=== PATIENT | female | born 1955 | race Hispanic/Latino ===

== ENCOUNTER 2017-12-19 15:29 | Emergency (ER) | payer OTHER ==
--- NOTE | 2017-12-19 16:22 | RAD REPORT ---
EXAM DESCRIPTION: RAD - Chest Pa And Lat (2 Views) - 12/19/2017 4:07 pm CLINICAL HISTORY: COUGH Chest pain. COMPARISON: CHEST SINGLE VIEW dated 07/19/2010 FINDINGS: The lungs are clear. The heart is mildly prominent. No displaced fractures. IMPRESSION: Mild cardiomegaly suspected.
[2017-12-19 17:25] LABS: Absolute Lymphocytes (CBC) 1.7 K/uL (0.7-4.9); Absolute Monocytes 0.4 K/uL (0.1-1.3); Absolute Neutrophil 2.3 K/uL (1.8-8.0); Basophils % 0.4 % (0-1.3); Eosinophils % 3.3 % (0-4.4); Hematocrit 39.2 % (36.0-45.0); Lymphocytes % 36.7 % (15.3-44.8); MCV 93.4 fL (80-100); MPV 8.1 fL (7.6-11.3); Monocytes % 9.1 % (3.3-12.3)
--- NOTE | 2017-12-19 17:31 | EKG ---
Test Date: 2017-12-19 Test Time: 15:53:40 Measurer: MYAH MEASUREMENT RESULTS: Intervals: Rate: 80 [place]: 154 QRSD: 146 QT: 408 QTc: 470 Ivor: P: 59 [place]: 154 QRS: 18 T: 184 INTERPRETIVE STATEMENTS: Normal sinus rhythm Left bundle branch block Abnormal ECG Compared to ECG 11/21/2016 22:28:14 Sinus tachycardia no longer present Left-axis deviation no longer present Electronically Signed On 12-19-17 17:30:04 CDT by Cipriano Weaver
[2017-12-19 17:44] LABS: BUN Blood Urea Nitrogen 14 mg/dL (7-18); Bicarbonate 29 mmol/L (21-32); Glucose Level 88 mg/dL (74-106); NT PRO-BNP 63 pg/mL (<125); Potassium 3.9 mmol/L (3.5-5.1); Sodium Level 139 mmol/L (136-145)
--- NOTE | 2017-12-19 17:53 | ER ---
Nurse's Notes [facility] Name: Ruth Silva Age: 62 yrs Sex: Female : 1955 Arrival Date: 12/19/2017 Time: 15:32 Bed 19 Private MD: out of town, doctor Diagnosis: Cough Presentation: 12/19 15:40 Initial Sepsis Screen: Does the patient meet any 2 criteria? No. Patient's initial sg sepsis screen is negative. Does the patient have a suspected source of infection? No. Patient's initial sepsis screen is negative. 15:41 Presenting complaint: Patient states: productive cough, chest pain intermittent with sv cough, back pain x 1 month. c/o chills. Transition of care: patient was not received from another setting of care. Onset of symptoms was November 18, 2017. Risk Assessment: Do you want to hurt yourself or someone else? Patient reports no desire to harm self or others. Care prior to arrival: None. 15:41 Method Of Arrival: Ambulatory sv 15:41 Acuity: MINAL 3 sv Historical: - Allergies: 15:44 No Known Allergies; sv - Home Meds: 15:44 unk HTN med [Active]; sv - PMHx: 15:44 Hypertension; sv - PSHx: 15:44 eye; sv - Immunization history:: Adult Immunizations up to date. - Social history:: Smoking status: Patient/guardian denies using tobacco. - Ebola Screening: : No symptoms or risks identified at this time. - Family history:: not pertinent. - Hospitalizations: : No recent hospitalization is reported. Screenin:20 Abuse screen: Denies threats or abuse. Denies injuries from another. Nutritional sg screening: No deficits noted. Tuberculosis screening: No symptoms or risk factors identified. Never had TB. Fall Risk None identified. Assessment: 15:40 General: Appears in no apparent distress. comfortable, well groomed, well developed, sg well nourished, Behavior is calm, cooperative, appropriate for age. Pain: Complains of pain in back Quality of pain is described as aching. Neuro: Level of Consciousness is awake, alert, obeys commands, Oriented to person, place, time, situation, Speech is normal, Facial symmetry appears normal. 15:40 Respiratory: Airway is patent Respiratory effort is even, unlabored, Respiratory sg pattern is regular, symmetrical, Breath sounds are clear. GI: No signs and/or symptoms were reported involving the gastrointestinal system. : No signs and/or symptoms were reported regarding the genitourinary system. EENT: No signs and/or symptoms were reported regarding the EENT system. Derm: Skin is pink, warm \T\ dry. Musculoskeletal: No signs and/or symptoms reported regarding the musculoskeletal system. 15:40 Cardiovascular: Heart tones S1 S2 present Capillary refill is brisk in bilateral sg fingers Patient's skin is warm and dry. Chest pain is denied. Vital Signs: 15:44 BP 181 / 81; Pulse 85; Resp 18; Temp 97.8; Pulse Ox 98% ; Weight 63.5 kg; Height 4 ft. sv 9 in. (144.78 cm); Pain 6/10; 15:44 Body Mass Index 30.30 (63.50 kg, 144.78 cm) sv ED Course: 15:32 Patient arrived in ED. mr 15:33 out of town, doctor is Private Physician. mr 15:40 Patient has correct armband on for positive identification. Bed in low position. Call sg light in reach. Side rails up X2. Pulse ox on. NIBP on. 15:43 Triage completed. sv 15:45 Arm band placed on right wrist. sv 15:45 Patient placed in waiting room, Patient notified of wait time. sv 15:57 EKG completed in triage. Results shown to MD. sv 16:04 Patient moved to radiology via wheelchair. kc2 16:05 Chest Pa And Lat (2 Views) XRAY In Process Unspecified. EDMS 16:05 X-ray completed. Patient tolerated procedure well. kc2 16:53 David Lomas MD is Attending Physician. rn 17:05 Villa Chapman, LYUBOV is Primary Nurse. sg 17:20 Initial lab(s) drawn, by wv, sent to lab. Inserted saline lock: 22 gauge in left mh5 antecubital area, using aseptic technique. Blood collected. 18:20 No provider procedures requiring assistance completed. IV discontinued, intact, sg bleeding controlled, No redness/swelling at site. Pressure dressing applied. Administered Medications: No medications were administered Outcome: 17:53 Discharge ordered by MD. rn 18:20 Discharged to home ambulatory, with family. sg 18:20 Condition: good 18:20 Discharge instructions given to patient, Instructed on discharge instructions, follow up and referral plans. safety practices, Demonstrated understanding of instructions, follow-up care. 18:28 Patient left the ED. iw Signatures: Dispatcher [employer] Funmilayo Castillo RN RN sv Gay, Steven, RN RN sg Rivera, Maria mr Jyotsna Cronin RN RN iw Nieto, Roman, MD MD rn Carr, Kelsie kc Jovana Houser [facility] Corrections: (The following items were deleted from the chart) 15:45 15:41 Presenting complaint: Patient states: cough, chest pain intermittent with cough, sv back pain x 1 month. c/o chills sv 18:45 15:40 General: Appears in no apparent distress. comfortable, well groomed, well sg developed, well nourished, Behavior is calm, cooperative, appropriate for age, sg
--- NOTE | 2017-12-19 17:54 | EDPHYS ---
Physician Documentation [facility] Name: Ruth Silva Age: 62 yrs Sex: Female : 1955 Arrival Date: 12/19/2017 Time: 15:32 Bed 19 Private MD: out of town, doctor ED Physician David Lomas HPI: 12/19 17:49 This 62 yrs old Female presents to ER via Ambulatory with complaints of Cough, rn Back Pain. 17:49 The patient or guardian reports cough. Onset: The symptoms/episode began/occurred 1 rn month(s) ago. Severity of symptoms: At their worst the symptoms were mild, in the emergency department the symptoms are unchanged. Modifying factors: The symptoms are alleviated by nothing, the symptoms are aggravated by nothing. The patient has experienced a previous episode. Reports 1 month of cough, no fever, hurts chest and back when coughs, no fever, taking 2 unknown BP meds, thinks one might be lisinopril, no sob, reports coughs more at night. NO abd pain. . Historical: - Allergies: 15:44 No Known Allergies; sv - Home Meds: 15:44 unk HTN med [Active]; sv - PMHx: 15:44 Hypertension; sv - PSHx: 15:44 eye; sv - Immunization history:: Adult Immunizations up to date. - Social history:: Smoking status: Patient/guardian denies using tobacco. - Ebola Screening: : No symptoms or risks identified at this time. - Family history:: not pertinent. - Hospitalizations: : No recent hospitalization is reported. ROS: 17:49 Constitutional: Negative for fever, chills, and weight loss, Eyes: Negative for injury, rn pain, redness, and discharge, Neck: Negative for injury, pain, and swelling, Cardiovascular: Negative for palpitations, and edema, Respiratory: Negative for wheezing Abdomen/GI: Negative for abdominal pain, nausea, vomiting, diarrhea, and constipation, MS/Extremity: Negative for injury and deformity, Skin: Negative for injury, rash, and discoloration, Neuro: Negative for headache, weakness, numbness, tingling, and seizure. Exam: 17:49 Constitutional: This is a well developed, well nourished patient who is awake, alert, rn and in no acute distress. Head/Face: Normocephalic, atraumatic. Eyes: Pupils equal round and reactive to light, extra-ocular motions intact. Lids and lashes normal. Conjunctiva and sclera are non-icteric and not injected. Cornea within normal limits. Periorbital areas with no swelling, redness, or edema. Neck: Trachea midline, no thyromegaly or masses palpated, and no cervical lymphadenopathy. Supple, full range of motion without nuchal rigidity, or vertebral point tenderness. No Meningismus. Cardiovascular: Regular rate and rhythm with a normal S1 and S2. No gallops, murmurs, or rubs. Normal PMI, no JVD. No pulse deficits. Respiratory: Lungs have equal breath sounds bilaterally, clear to auscultation and percussion. No rales, rhonchi or wheezes noted. No increased work of breathing, no retractions or nasal flaring. Abdomen/GI: Soft, non-tender, with normal bowel sounds. No distension or tympany. No guarding or rebound. No evidence of tenderness throughout. MS/ Extremity: Pulses equal, no cyanosis. Neurovascular intact. Full, normal range of motion. Equal circumference. Neuro: Awake and alert, GCS 15, oriented to person, place, time, and situation. Cranial nerves II-XII grossly intact. Motor strength 5/5 in all extremities. Sensory grossly intact. Vital Signs: 15:44 BP 181 / 81; Pulse 85; Resp 18; Temp 97.8; Pulse Ox 98% ; Weight 63.5 kg; Height 4 ft. sv 9 in. (144.78 cm); Pain 6/10; 15:44 Body Mass Index 30.30 (63.50 kg, 144.78 cm) sv MDM: 16:53 Patient medically screened. rn 17:49 Differential Diagnosis: Allergic Rhinitis Viral Syndrome Pneumonia Other acid reflux, rn CHF, PATIENCE antihypertensive. Data reviewed: vital signs, nurses notes, lab test result(s), EKG, radiologic studies, plain films, and as a result, I will discharge patient. Counseling: I had a detailed discussion with the patient and/or guardian regarding: the historical points, exam findings, and any diagnostic results supporting the discharge/admit diagnosis, lab results, radiology results, the need for outpatient follow up, to return to the emergency department if symptoms worsen or persist or if there are any questions or concerns that arise at home. Response to treatment: the patient's symptoms have mildly improved after treatment, and as a result, I will discharge patient. Special discussion: I discussed with the patient/guardian in detail that at this point there is no indication for admission to the hospital. It is understood, however, that if the symptoms persist or worsen the patient needs to return immediately for re-evaluation. Based on the history and exam findings, there is no indication for further emergent testing or inpatient evaluation. I discussed with the patient/guardian the need to see the primary care provider for further evaluation of the symptoms. ED course: Unsure of meds, but might be PATIENCE medication side effect, acid reflux, allergic rhinitis, given length of symptoms, normal renal function, normal bnp, no pneumonia on CXR.. 12/19 17:04 Order name: CBC with Diff; Complete Time: 17:32 rn 12/19 17:04 Order name: Basic Metabolic Panel; Complete Time: 17:47 rn 12/19 15:46 Order name: Chest Pa And Lat (2 Views) XRAY; Complete Time: 16:53 12/19 15:46 Order name: EKG; Complete Time: 15:46 12/19 17:04 Order name: BNP; Complete Time: 17:47 rn 12/19 17:04 Order name: Troponin (emerg Dept Use Only); Complete Time: 17:47 rn 12/19 15:46 Order name: EKG - Nurse/Tech; Complete Time: 16:20 12/19 17:04 Order name: IV Start rn Administered Medications: No medications were administered Disposition: 12/19/17 17:53 Discharged to Home. Impression: Cough. - Condition is Stable. - Discharge Instructions: Cough, Adult. - Medication Reconciliation Form, Thank You Letter, Antibiotic Education, Prescription Opioid Use form. - Follow up: Private Physician; When: As needed; Reason: Recheck today's complaints, Re-evaluation by your physician. - Problem is an ongoing problem. - Symptoms are unchanged. Signatures: Dispatcher [employer] EDFunmilayo Atkinson RN RN sv Jyotsna Cronin RN RN David Lomas MD MD furnace room supervisor: (The following items were deleted from the chart) 18:28 17:53 12/19/2017 17:53 Discharged to Home. Impression: Cough. Condition is Stable. iw Forms are Medication Reconciliation Form, Thank You Letter, Antibiotic Education, Prescription Opioid Use. Follow up: Private Physician; When: As needed; Reason: Recheck today's complaints, Re-evaluation by your physician. Problem is an ongoing problem. Symptoms are unchanged. rn
== END 2017-12-19 18:28 | disposition home or self-care (01) ==
LOC: ER 15:29
DX: R05 Cough (principal); I10 Essential (primary) hypertension
CPT/HCPCS: 36415; 71046; 80048; 83880; 84484; 85025; 93005; 99284

== ENCOUNTER 2023-10-14 10:56 | Emergency (ER) | payer OTHER ==
--- NOTE | 2023-10-14 11:36 | RAD REPORT ---
EXAM DESCRIPTION: RAD - Chest Single View - 10/14/2023 11:22 am CLINICAL HISTORY: CONGESTION Chest pain. COMPARISON: Chest Pa And Lat (2 Views) dated 12/19/2017; CHEST SINGLE VIEW dated 07/19/2010 FINDINGS: Portable technique limits examination quality. The lungs are grossly clear. The heart is normal in size. No displaced fractures. IMPRESSION: No acute intrathoracic process suspected.
[2023-10-14 11:42] LABS: SARS-CoV-2 Antigen CONTROL BLUE LINE VIS/BG OK; SARS-CoV-2 Antigen Rapid Res Negative (Negative)
--- NOTE | 2023-10-14 11:57 | ER ---
Nurse's Notes [facility] Name: Ruth Silva Age: 68 yrs Sex: Female : 1955 Arrival Date: 10/14/2023 Time: 10:56 Bed DX3 Private MD: Diagnosis: Viral infection, unspecified Presentation: 10/13 11:04 Chief complaint: Patient states: she has had a cough and congestion for 8 days. patient ap3 denies any shortness of breath, fevers, or nausea. Coronavirus screen: Client presents with at least one sign or symptom that may indicate coronavirus-19. Ebola Screen: No symptoms or risks identified at this time. Initial Sepsis Screen: Does the patient meet any 2 criteria? No. Patient's initial sepsis screen is negative. Does the patient have a suspected source of infection? No. Patient's initial sepsis screen is negative. Risk Assessment: Do you want to hurt yourself or someone else? Patient reports no desire to harm self or others. Onset of symptoms was September 05, 2023. 11:04 Method Of Arrival: Ambulatory ap3 11:04 Acuity: MINAL 3 ap3 Triage Assessment: 11:07 General: Appears in no apparent distress. Behavior is calm, cooperative, appropriate ap3 for age. Pain:. Neuro: Level of Consciousness is awake, alert, obeys commands, Oriented to person, place, time, situation. Cardiovascular: No deficits noted. Respiratory: Reports cough that is productive, pain with cough. Respiratory: Airway is patent Respiratory effort is even, unlabored, Respiratory pattern is regular, symmetrical. GI: No deficits noted. Historical: - Allergies: 11:06 No Known Allergies; ap3 - PMHx: 11:06 Hypertension; ap3 - Immunization history:: Adult Immunizations up to date. - Infectious Disease History:: Denies. - Social history:: Smoking status: Patient denies any tobacco usage or history of. Screenin:08 Abuse screen: Denies threats or abuse. Nutritional screening: No deficits noted. ap3 Tuberculosis screening: No symptoms or risk factors identified. 12:00 [facility] ED Fall Risk Assessment (Adult) History of falling in the last 3 months, as6 including since admission No falls in past 3 months (0 pts) Confusion or Disorientation No (0 pts) Intoxicated or Sedated No (0 pts) Impaired Gait No (0 pts) Mobility Assist Device Used No (0 pt) Altered Elimination No (0 pt) Score/Fall Risk Level 0 - 2 = Low Risk Oriented to surroundings, Maintained a safe environment, Educated pt \T\ family on fall prevention, incl call for assistance when getting out of bed, Assessed \T\ reinforced patient's understanding of fall precautions. Assessment: 11:59 Reassessment: Patient appears in no apparent distress at this time. Patient is alert, as6 oriented x 3, equal unlabored respirations, skin warm/dry/pink. Vital Signs: 11:04 BP 157 / 67; Pulse 72; Resp 17; Temp 98.4(O); Pulse Ox 97% ; Weight 59.42 kg; ap3 11:55 BP 151 / 60; Pulse 71; Resp 16 S; Pulse Ox 96% on R/A; as6 ED Course: 11:00 Patient arrived in ED. mr 11:02 Chacho Garcia MD is Attending Physician. ec2 11:06 Triage completed. ap3 11:08 Arm band placed on left wrist. ap3 11:22 COVID swab sent to lab. Flu and/or RSV swab sent to lab. ap3 11:25 CXR XRAY In Process Unspecified. EDMS 12:00 Patient has correct armband on for positive identification. Provided Education on: as6 follow up, rx teaching . 12:00 No provider procedures requiring assistance completed. Patient did not have IV access as6 during this emergency room visit. Administered Medications: No medications were administered Medication: 12:00 VIS not applicable for this client. as6 Outcome: 11:56 Discharge ordered by . ec2 12:00 Discharged to home ambulatory, with significant other, as6 12:00 Condition: stable 12:00 Discharge instructions given to patient, Instructed on discharge instructions, follow up and referral plans. medication usage, Demonstrated understanding of instructions, follow-up care, medications, Prescriptions given X 2, 12:00 Patient left the ED. as6 Signatures: Dispatcher [employer] EDPA Marisela Whitehead, Reg Reg mr Avelina Mancera, RN RN ap3 Tobias Gutierrez RN RN as6 Chacho Garcia MD MD ec2
--- NOTE | 2023-10-14 11:57 | EDPHYS ---
Physician Documentation [facility] Name: Ruth Silva Age: 68 yrs Sex: Female : 1955 Arrival Date: 10/14/2023 Time: 10:56 Bed DX3 Private MD: ED Physician Chacho Garcia HPI: 10/13 11:13 This 68 yrs old Female presents to ER via Ambulatory with complaints of Cough, ec2 Congestion. 11:13 Patient arrives today for evaluation of cough and cold symptoms. Patient been ec2 experiencing 8 days of symptoms. He is having a persistent cough, worse at night. Patient reports no difficulty breathing, no fevers or chills, no nausea or vomiting. Also reports some congestion as well as some bodyaches. . Historical: - Allergies: 11:06 No Known Allergies; ap3 - PMHx: 11:06 Hypertension; ap3 - Immunization history:: Adult Immunizations up to date. - Infectious Disease History:: Denies. - Social history:: Smoking status: Patient denies any tobacco usage or history of. ROS: 11:13 Constitutional: as per hpi ec2 Exam: 11:13 Constitutional: GEN: NAD Head: atraumatic Eyes: EOMI Ears: External ears are ec2 normal. CV: regular rate LUNGS: no respiratory distress, no wheezes, no rales, no rhonchi ABD: non-distended SKIN: no evidence of rashes MSK: no evidence of trauma NEURO: moves all extremities equally Vital Signs: 11:04 BP 157 / 67; Pulse 72; Resp 17; Temp 98.4(O); Pulse Ox 97% ; Weight 59.42 kg; ap3 11:55 BP 151 / 60; Pulse 71; Resp 16 S; Pulse Ox 96% on R/A; as6 MDM: 11:11 Patient medically screened. ec2 11:13 Data reviewed: vital signs. ED course: Patient arrives today for evaluation of URI ec2 symptoms. Examination remarkable for well-appearing nontoxic individual is otherwise in no acute distress. Will obtain viral swab, chest x-ray. Suspect viral infection causing patient's symptoms, doubt pneumonia given lack of focal lung sounds. Additionally patient otherwise systemically well-appearing with reassuring vital signs, will defer any lab work such as CBC or BMP at this time.. 11:39 ED course: Chest x-ray independently reviewed and interpreted by me, shows no acute ec2 intrathoracic process. . 11:56 ED course: Negative viral swabs. Will discharge home prescription for Tessalon Perles ec2 as well as prednisone as needed. Return precautions given presentation suspect consistent with viral infection.. 10/13 11:12 Order name: Influenza Screen (a \T\ B); Complete Time: 11:56 ec2 10/13 11:12 Order name: SARS RAPID; Complete Time: 11:56 ec2 10/13 11:12 Order name: CXR XRAY; Complete Time: 11:37 ec2 Administered Medications: No medications were administered Disposition Summary: 10/14/23 11:56 Discharge Ordered Notes: Location: Home ec2 Condition: Stable ec2 Diagnosis - Viral infection, unspecified ec2 Followup: ec2 - With: Private Physician - When: - Reason: Re-evaluation by your physician Discharge Instructions: - Discharge Summary Sheet ec2 - Viral Illness, Adult ec2 Forms: - Medication Reconciliation Form ec2 - Thank You Letter ec2 - Antibiotic Education ec2 - Prescription Opioid Use ec2 - Patient Portal Instructions ec2 - Leadership Thank You Letter ec2 Prescriptions: - Tessalon Perles 100 mg Oral Capsule - take 1 capsule ORAL route every 8 hours As needed; 15 capsule; Refills: 0, ec2 Product Selection Permitted - Prednisone 20 mg Oral Tablet - take 2 tablets ORAL route once daily for 5 days; 10 tablet; Refills: 0, Product ec2 Selection Permitted Signatures: Dispatcher [employer] Avelina Regalado RN RN ap3 Tobias Gutierrez RN RN as6 Chacho Garcia MD MD ec2
[2023-10-14 15:06] VITALS: BP 157/67; TEMP 98.4; O2SAT 97
== END 2023-10-14 12:00 | disposition home or self-care (01) ==
LOC: ER 10:56
DX: B34.9 Viral infection, unspecified (principal); Z11.52 Encounter for screening for COVID-19; I10 Essential (primary) hypertension
CPT/HCPCS: 36415; 71045; 87804; 87811